=== PATIENT | female | born 1975 ===

== ENCOUNTER → 2022-05-26 | Outpatient (CLI) | payer OTHER ==
[~2022-05-26] VITALS: Ht 160 cm; Wt 67.3 kg
[~2022-05-26] MED LIST: LIDOCAINE 1% INJ 10 ML VIAL INJ ONE; LIDOCAINE 1% INJ 10 ML VIAL ONE
--- NOTE | 2022-05-26 13:17 | Diagnostic Imaging Report ---
INDICATION: Abnormal mammogram and ultrasound. Patient presents for biopsy. Patient brought to the sonographic suite placed on table in the supine position. Ultrasound imaging of the right breast was performed to evaluate appropriate entry site. Right breast was then prepped and draped in usual sterile fashion. Small amount of 1% lidocaine was utilized for local anesthesia. A total of 4 passes were made into the hypoechoic nodule at the 9:00 location of the right breast, 4 cm from the nipple, utilizing 14-gauge achieve needle. A marker clip was then deployed. Hemostasis was obtained. Patient tolerated the procedure well. IMPRESSION: Successful ultrasound-guided core biopsy of the hypoechoic nodule at the 9:00 location right breast, 4 cm from the nipple. Pathology results are currently pending. Dictated by: Dictated on workstation # [id number]
--- NOTE | 2022-05-26 13:25 | Diagnostic Imaging Report ---
INDICATION: Right breast nodule. PROCEDURE: The patient presents for ultrasound-guided biopsy. Patient was brought to the sonographic suite and placed on the table in the supine position. Ultrasound imaging of the right breast was performed to evaluate appropriate entry site. Right breast was then prepped and draped in the usual sterile fashion. A total of 3 core biopsies were obtained of the hypoechoic nodule at the 10:00 location of the right breast, 4 cm from the nipple utilizing the 14-gauge Achieve needle. Marker clip was then deployed. Needle was removed and hemostasis was obtained. Patient tolerated the procedure well left the department in stable condition. IMPRESSION: Successful ultrasound-guided core biopsy of the hypoechoic nodule 10:00 location right breast, 4 cm from the nipple. Pathology results are currently pending. Dictated by: Dictated on workstation # [id number]
--- NOTE | 2022-05-26 16:25 | Diagnostic Imaging Report ---
INDICATION: Right breast biopsy. Unilateral right 2-D CC and ML mammography was performed after patient underwent biopsy. There are marker clips identified in the upper and outer aspects of the right breast at mid depth, status post ultrasound-guided biopsy. IMPRESSION: Marker clip placement, as described. Dictated on workstation # [id number]
== END ==
LOC: RAD 09:13
PROVIDERS: ATTEND Nurse Practitioner Family
DX: N63.11 Unspecified lump in the right breast, upper outer quadrant (principal); N63.15 Unspecified lump in the right breast, overlapping quadrants
CPT/HCPCS: 19083; 19084; 77065; G0279